=== PATIENT | female | born 1970 | race Caucasian/White ===

== ENCOUNTER 2019-03-28 06:29 | Day surgery (SDC) | payer OTHER ==
[2019-03-28] VITALS (13 sets, daily range): BP systolic 98–132; BP diastolic 61–83; PULSE 68–98; RESP 16–24; Ht 167.6 cm; Wt 50.2 kg
[~2019-03-28] VITALS: Ht 167.6 cm; Wt 50.2 kg
[2019-03-28] MEDS ORDERED: SOD CHLORIDE 0.9% 1,000 ML IV SCH (07:00)
[2019-03-28] MEDS ORDERED: GENTAMICIN 80 MG INJ ONE (07:05)
[2019-03-28] MEDS ORDERED: POLYMYXIN/BACITRACIN 1L IRRIG ONE (07:05)
--- NOTE | 2019-03-28 07:11 | PREAC ---
Date/Time of Note Date/Time of Note DATE: 03/28/19 TIME: 07:11 Anesthesia Eval and Record Evaluation Time Pre-Procedure Interview DATE: 03/28/19 TIME: 07:11 Age 49 Sex female NPO: 8 hrs Preoperative diagnosis Painful breast implant Planned procedure Bilateral breast implant removal and capsulectomy Past Medical History Past Medical History: Includes Endo: Other (Hypoglycemia) Psych: Anxiety Surgery & Anesthesia Issues No known issue Meds Anticoagulation: No Beta Riley within 24 hr: No Reason Beta Riley not given: Pt. not on B-Riley Reported Medications Cholecalciferol* (Vitamin D3*) 1,000 Unit Tablet, 2000 UNIT PO DAILY, TAB 03/28/19 Hydrocodone/Acetaminophen (Hydrocodone-Acetamin 10-325 mg) 1 Each Tablet, 1 TAB ORAL Q6 PRN for PAIN LEVEL 7-10 03/28/19 Current Medications Sodium Chloride 1,000 ml @ 0 mls/hr Q0M IV ; Start 03/28/19 at 07:00 Meds reviewed: Yes Allergies Coded Allergies: amoxicillin (Verified Allergy, Unknown, RASH, 03/27/19) epinephrine (Verified Allergy, Unknown, RASH, 03/27/19) ciprofloxacin (Verified Adverse Reaction, Severe, DIARRHEA, 03/27/19) Allergies Reviewed: Yes Labs/Studies Labs Reviewed: Reviewed by anesthesiologist test: Negative Pre-procedure Exam Airway: Adequate mouth opening Mallampati: Mallampati I Teeth: Normal Lung: Normal Heart: Normal ASA Physical Status ASA physical status: 2 Emergency: None Planned Anesthetic General/MAC: ETT, LMA Planned Pain Management Parenteral pain med Pre-operative Attestations Prior to commencing anesthesia and surgery, the patient was re-evaluated, there was verification of: *The patient's identity *The results of appropriate recent lab work and preoperative vital signs *The above evaluation not changing prior to induction *Anesthetic plan, risk benefits, alternative and complications discussed with patient/family; questions answered; patient/family understands, accepts and wishes to proceed. RAIN ROSARIO MD Mar 28, 2019 07:11
[2019-03-28] MEDS ORDERED: HYDR-3609 ORAL (07:12)
[2019-03-28] MEDS ORDERED: CHOL100062 PO (07:12)
[2019-03-28] MEDS ORDERED: MEPERIDINE 100 MG INJ ONE (07:33)
[2019-03-28] MEDS ORDERED: MIDAZOLAM 1 MG/ML 2 ML INJ ONE (07:33)
[2019-03-28] MEDS ORDERED: LIDOCAINE 2% (SDV) 5 ML INJ ONE (07:33)
[2019-03-28] MEDS ORDERED: PROPOFOL 20 ML ONE (07:33)
[2019-03-28] MEDS ORDERED: ONDANSETRON 4 MG INJ ONE (07:34)
[2019-03-28] MEDS ORDERED: METOCLOPRAMIDE 10 MG INJ ONE (07:34)
--- NOTE | 2019-03-28 07:36 | HPN ---
Date/Time of Note Date/Time of Note DATE: 03/28/19 TIME: 07:36 Interval H&P Admission Note Pt. seen H&P reviewed: No system changes DARRYL BARGER MD Mar 28, 2019 07:36
[2019-03-28] MEDS ORDERED: BUPIVACAINE 0.25%/EPI (SDV) 30 ML INJ ONE (07:42)
[2019-03-28] MEDS ORDERED: morphine 2 MG INJ IV PRN (08:00)
[2019-03-28] MEDS ORDERED: HYDROCODONE/APAP (5/325) TAB PO PRN (08:00)
[2019-03-28] MEDS ORDERED: ONDANSETRON 4 MG INJ IV PRN ×2 (08:00→08:30)
[2019-03-28] MEDS ORDERED: FENTAnyl 50 MCG/ML VIAL IV PRN ×3 (08:30)
[2019-03-28] MEDS ORDERED: OXYCODONE/ACETAMINOPHEN (5/325) TAB PO PRN ×2 (08:30)
[2019-03-28] MEDS ORDERED: METOCLOPRAMIDE 10 MG INJ IV PRN (08:30)
[2019-03-28] MEDS ORDERED: DIPHENHYDRAMINE 50 MG INJ IV PRN (08:30)
[2019-03-28] MEDS ORDERED: MEPERIDINE 25 MG INJ IV PRN (08:30)
[2019-03-28] MEDS ORDERED: MIDAZOLAM 1 MG/ML 2 ML INJ IV PRN (08:30)
[2019-03-28] MEDS ORDERED: HYDROmorphONE 1 MG/5 ML IV SYRINGE IV PRN ×2 (08:30)
--- NOTE | 2019-03-28 09:01 | OPR ---
Date/Time of Note Date/Time of Note DATE: 03/28/19 TIME: 08:54 Operative Report Free Text/Dictation Plastic Surgery Operative Report Preoperative diagnosis: bilateral grade IV capsular contracture Postoperative diagnosis:same Procedure: bilateral breast implant removal, capsulectomy and capsulotomy Surgeon: erica Swenson.: INDU rendon Anesthesia: gen EBL: min IV fluids: per flow sheet Findings: n/a Complications: none Dispo: home Indications for procedure: Patient presents today to undergo bilateral breast implant removal. She has extremely thin skin and we will perform a capsulectomy if possible. We will perform capsulotomies where the areas of capsulectomy are not possible. The risks, benefits, alternatives of performing this procedure were discussed with the patient including risks of bleeding, infection, wound healing problems, asymmetry, poor cosmetic appearance. It was specifically discussed that due to the fact that we were not performing a mastopexy or implant replacement, her breasts will be significantly flat and deflated in appearance and this is unavoidable. Patient states that she understands these risks and would like to proceed with the procedure. All questions were answered and no guarantees were given with regards to the outcome of this procedure. Description of procedure: Patient was brought to the operating room at [facility] where general anesthesia was induced and she was prepped and draped in usual sterile fashion. Preoperatively, the previous inframammary incisions were marked. 5 cc of 0.25% Marcaine with 1: 200,000 epinephrine were injected into the planned incision site in the previous scar of each breast. Attention was first turned to the left breast where the incision was made with a 10 blade and electrocautery was used to dissect down to the breast implant capsule. The capsule was opened. The implant was removed. It appeared to be an intact saline implant. The pocket was inspected. There were no obvious calcifications or other areas of suspicion. Therefore, a substantial portion of the capsule was removed from the inferior and inferior lateral aspect. Capsulotomies were performed anteriorly where the skin was extremely thin. The pocket was irrigated antibiotic irrigation and hemostasis was achieved with electrocautery. Attention was turned to the contralateral breast where a similar procedure was carried out. Incision was opened with the 10 blade and electrocautery was used to dissect down to the implant capsule. Capsule was opened and the implant was removed. It also appeared to be an intact saline implant. The pocket was inspected and there were no obvious calcifications or other areas of suspicion. Once again a substantial portion of the capsule was removed from the inferior and inferior lateral aspect. Capsulotomies were carried out over the remaining capsule where the skin was thin. Multiple rounds of antibiotic irrigation and hemostasis were carried out. Next, a 15 [place] round drain was inserted laterally to each breast and was secured with 2-0 nylon suture. The incisions were then closed with 3-0 Vicryl suture and 4-0 Monocryl suture. 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
[2019-03-28] MEDS: HYDROmorphONE 1 MG/5 ML IV SYRINGE IV PRN ×2 (09:10→09:32)
--- NOTE | 2019-03-28 09:53 | PAC ---
Date/Time of Note Date/Time of Note DATE: 03/28/19 TIME: 09:53 Post-Anesthesia Notes Post-Anesthesia Note Last documented vital signs Vital Signs Date Temp Pulse Resp B/P (MAP) Pulse Ox O2 O2 Flow FiO2 Time Delivery Rate 03/28/19 78 22 118/71 100 Room Air 09:49 (87) 03/28/19 97.8 08:59 03/28/19 6.0 08:58 Activity: WNL Respiratory function: WNL Cardiovascular function: WNL Mental status: Baseline Pain reasonably controlled: Yes Hydration appropriate: Yes Nausea/Vomiting absent: Yes Comments BT: 98.3 RAIN ROSARIO MD Mar 28, 2019 09:53
== END 2019-03-28 11:23 | disposition home or self-care (01) ==
LOC: SDS 06:29 → EDSTATUS 12:00
PROVIDERS: ATTEND Surgery Plastic and Reconstructive Surgery
DX: T85.44XA Capsular contracture of breast implant, initial encounter (principal); N64.4 Mastodynia; F41.9 Anxiety disorder, unspecified; E16.2 Hypoglycemia, unspecified
CPT/HCPCS: 19371; 82962; J1170; J1580; J2175; J2250; J2405; J2765; Z7610